=== PATIENT | female | born 1960 | race Caucasian/White ===

== ENCOUNTER → 2021-11-09 | Outpatient (CLI) | payer OTHER ==
[~2021-11-09] MED LIST: SYNTHROID25 MCG PO
== END ==
LOC: KOH-I 11:31
DX: M79.671 Pain in right foot (principal); M79.672 Pain in left foot; S82.302A Unspecified fracture of lower end of left tibia, initial encounter for closed fracture; M19.072 Primary osteoarthritis, left ankle and foot; M19.071 Primary osteoarthritis, right ankle and foot
CPT/HCPCS: 73610; 73630

== ENCOUNTER → 2021-11-23 | Outpatient (CLI) | payer OTHER | LOC: KOH-I 10:58 | DX: S82.892A Other fracture of left lower leg, initial encounter for closed fracture (principal); M79.89 Other specified soft tissue disorders | CPT/HCPCS: 73610 ==

== ENCOUNTER → 2021-12-21 | Outpatient (CLI) | payer OTHER | LOC: KOH-I 10:21 | DX: M79.672 Pain in left foot (principal); S82.52XD Displaced fracture of medial malleolus of left tibia, subsequent encounter for closed fracture with routine healing; X58.XXXD Exposure to other specified factors, subsequent encounter | CPT/HCPCS: 73610; 73630 ==

== ENCOUNTER → 2022-02-01 | Outpatient (CLI) | payer OTHER | LOC: KOH-I 01-18 10:15 | DX: M75.111 Incomplete rotator cuff tear or rupture of right shoulder, not specified as traumatic (principal); M87.9 Osteonecrosis, unspecified | CPT/HCPCS: 73221 ==

== ENCOUNTER → 2022-02-05 | Outpatient (CLI) | payer OTHER | LOC: KOH-I 11:10 | DX: S82.52XD Displaced fracture of medial malleolus of left tibia, subsequent encounter for closed fracture with routine healing (principal) | CPT/HCPCS: 73610 ==

== ENCOUNTER → 2022-02-15 | Outpatient (CLI) | payer OTHER ==
[~2022-02-15] MED LIST changes: +ALBUTEROL2.5 MG/3 M INH; +ASPIRIN CHEWABL81 MG PO; +B-1100 MG PO; +CALCIUM500 M1 PO; +CLARITIN10 MG PO; +CYCLOBENZAPRINE10 MG PO; +FOLIC ACID 1 MG1 MG PO; +FOSAMAX70 MG PO; +GABAPENTIN800 MG PO; +HYDROXYZINE HCL25 MG PO; +LIPITOR40 MG PO; +PAIN RELIEF650 MG PO; +PHENERGAN 25 MG25 M1 PO; +PROTONIX 40 MG40 M1 PO; +PROVENTIL HFA6.7 GM INH; +VITAMIN B-121000 MC3 PO; +VITAMIN D21250 MCG PO; +VITAMIN D325 MCG PO; +ZOFRAN 4 MG TAB4 MG PO
[2022-02-15 14:12] LABS: HEMOGLOBIN 14.3 gm/dl (12.3-15.3); RED BLOOD COUNT 4.21 M/UL (4.00-5.10)
[2022-02-15 14:27] LABS: BUN/CREATININE RATIO 7 (0-10)
== END ==
LOC: OPSV2 02-14 10:00 → EDSTATUS 12:30 → OPSV2 13:04
PROVIDERS: Orthopaedic Surgery
DX: Z01.818 Encounter for other preprocedural examination (principal); M75.101 Unspecified rotator cuff tear or rupture of right shoulder, not specified as traumatic
CPT/HCPCS: 36415; 71046; 80048; 85025; 93005

== ENCOUNTER → 2022-02-22 | Outpatient (CLI) | payer OTHER ==
[~2022-02-22] MED LIST changes: +ALENDRONATE SOD70 MG PO; +BACTROBAN OINT22 GM EXT; +HYDROCODONE-IB1 EACH PO; +MYCOSTATIN CREA15 GM TOP
[2022-02-22 13:34] LABS: BUN/CREATININE RATIO 4 (0-10)
== END ==
LOC: LAB 12:43
PROVIDERS: Orthopaedic Surgery
DX: Z01.812 Encounter for preprocedural laboratory examination (principal)
CPT/HCPCS: 36415; 80048; 86850; 86900; 86901

== ENCOUNTER → 2022-02-23 | Day surgery (SDC) | payer OTHER | END | disposition home or self-care (01) | LOC: OR 05:08 | DX: M87.811 Other osteonecrosis, right shoulder (principal); M75.101 Unspecified rotator cuff tear or rupture of right shoulder, not specified as traumatic; G89.18 Other acute postprocedural pain; I10 Essential (primary) hypertension; K21.9 Gastro-esophageal reflux disease without esophagitis; E78.5 Hyperlipidemia, unspecified; J45.909 Unspecified asthma, uncomplicated; F41.9 Anxiety disorder, unspecified; F17.210 Nicotine dependence, cigarettes, uncomplicated; Z88.5 Allergy status to narcotic agent; Z79.82 Long term (current) use of aspirin; Z79.899 Other long term (current) drug therapy; Z20.822 Contact with and (suspected) exposure to COVID-19 | CPT/HCPCS: 73020; C1713; C1776; J0690; J1170; J1885; J2001; J2250; J2370; J2405; J2704; J2795; J3010; J7120 ==